=== PATIENT | female | born 1990 | race Caucasian/White ===

== ENCOUNTER 2019-06-28 08:00 | Emergency (ER) | payer BC ==
[2019-06-28 10:18] VITALS: BP 121/71
--- NOTE | 2019-06-28 11:03 | UC ---
Throat Pain/Nasal Caden HPI - HPI Summary HPI Summary: 5-6 DAYS OF SORE THROAT, PAIN WITH SWALLOWING AND DEEP COUGH. NO FEVER, NAUSEA/ VOMITING. SEEN HERE 2 DAYS AGO AND HAD A NEGATIVE STREP TEST. WAS ADVISED SHE HAD A VIRAL ILLNESS AND TO TREAT CONSERVATIVELY. IS HERE TODAY STATING SHE FEELS WORSE. THROAT PAIN IS KEEPING HER UP AT NIGHT. - History of Current Complaint Chief Complaint: UCGeneralIllness Stated Complaint: RECHECK OF SORE THROAT COUGH Time Seen by Provider: 06/28/19 09:01 Hx Obtained From: Patient Hx Last Menstrual Period: nuva ring Onset/Duration: Gradual Onset, Lasting Days, Still Present Severity: Moderate Pain Intensity: 2 Pain Scale Used: 0-10 Numeric Cough: Nonproductive Associated Signs & Symptoms: Positive: Hoarseness. Negative: Fever - Allergies/Home Medications Allergies/Adverse Reactions: Allergies Allergy/AdvReac Type Severity Reaction Status Date / Time No Known Allergies Allergy Verified 06/28/19 08:09 PMH/Surg Hx/FS Hx/Imm Hx Previously Healthy: Yes - Surgical History Surgical History: None - Family History Known Family History: Positive: Non-Contributory - Social History Alcohol Use: None Substance Use Type: None Smoking Status (MU): Never Smoked Tobacco Review of Systems All Other Systems Reviewed And Are Negative: Yes Constitutional: Positive: Negative ENT: Positive: Sore Throat, Nasal Discharge Respiratory: Positive: Cough Cardiovascular: Positive: Negative Gastrointestinal: Positive: Negative Physical Exam Triage Information Reviewed: Yes Appearance: Well-Appearing, No Pain Distress, Well-Nourished Vital Signs: Initial Vital Signs Temp 98.8 F 06/28/19 08:06 Pulse 110 06/28/19 08:06 Resp 20 06/28/19 08:06 BP 99/67 06/28/19 08:06 Pulse Ox 100 06/28/19 08:06 Vital Signs Reviewed: Yes Eyes: Positive: Conjunctiva Clear ENT: Positive: Hearing grossly normal, Pharynx normal, TMs normal, Hoarse voice. Negative: Tonsillar swelling, Tonsillar exudate Neck: Positive: Supple, Nontender, No Lymphadenopathy Respiratory Exam: Normal Cardiovascular Exam: Normal Abdomen Description: Positive: Soft Musculoskeletal: Positive: No Edema Neurological: Positive: Alert Psychological: Positive: Age Appropriate Behavior Skin: Negative: Rashes Throat Pain/Nasal Course/Dx - Course Course Of Treatment: PATIENT LOOKS GOOD ON PHYSICAL EXAM. NO TONSILLAR ERYTHEMA OR EXUDATES. LUNGS ARE CLEAR. EARS ARE NORMAL. NO INDICATION OF BACTERIAL INFECTION TODAY. NO INDICATION FOR REPEAT STREP TEST. DISCUSSED CONSERVATIVE MEASURES TO MANAGE PATIENT'S SYMPTOMS. WILL GIVE IBUPROFEN, MAGIC MOUTHWASH, COUGH MEDICINE AND PREDNISONE. NO INDICATION FOR ANTIBIOTICS AT PRESENT. PATIENT IS IN AGREEMENT WITH THIS PLAN. SHE WILL FOLLOW-UP IF NOT IMPROVING OVER THE NEXT 1-2 WEEKS. - Differential Dx/Diagnosis Provider Diagnosis: Acute viral pharyngitis Discharge ED - Sign-Out/Discharge Documenting (check all that apply): Patient Departure All imaging exams completed and their final reports reviewed: No Studies - Discharge Plan Condition: Stable Disposition: HOME Prescriptions: Benzonatate CAP* [Tessalon CAP*] 1 - 2 cap PO TID PRN #30 cap PRN Reason: Cough Ibuprofen TAB* [Motrin TAB* 600 MG] 1 tab PO Q6H PRN #30 tab PRN Reason: Pain Magic Mouth Was-CHASE/MAAL/LIDO* 5 - 10 ml SWISH SWAL QID PRN #150 ml PRN Reason: Sore Throat predniSONE TAB* [Deltasone TAB*] 50 mg PO DAILY #5 tab Patient Education Materials: Pharyngitis (ED) Referrals: [facility] [Outside] - If Needed Additional Instructions: YOUR SYMPTOMS ARE LIKELY VIRALLY MEDIATED AND SHOULD RESOLVE ON THEIR OWN WITH TIME. NO INDICATION FOR ANTIBIOTICS AT PRESENT. REST, HYDRATE, IBUPROFEN NEEDED. WILL TREAT WITH PREDNISONE TO HELP WITH AIRWAY INFLAMMATION AND COUGH MEDICINE. SEEK FOLLOW-UP IF YOU ARE NOT IMPROVING OVER THE NEXT 1-2 WEEKS. CALL THE NUMBER BELOW FOR ASSISTANCE IN ESTABLISHING WITH A PCP An additional resource available to assist in finding the appropriate physician for your health care needs is the [facility] ([facility]). You may contact them by calling [phone]. - Billing Disposition and Condition Condition: STABLE Disposition: Home
== END 2019-06-28 10:19 | disposition home or self-care (01) ==
LOC: UCEAST 08:00
DX: J02.8 Acute pharyngitis due to other specified organisms (principal); R05 Cough
CPT/HCPCS: 99212; G0463

== ENCOUNTER 2019-07-04 07:02 | Emergency (ER) | payer BC ==
--- NOTE | 2019-07-04 07:10 | UC ---
Throat Pain/Nasal Caden HPI - HPI Summary HPI Summary: 28 year old woman comes in with 10 days of upper respiratory tract infection symptoms. Patient's had rhinorrhea sore throat cough chest congestion. She's been treated with peds on the date and prednisone and ftrb-xyr-nmqowxg cough medications. The rhinorrhea has improved the sore throat is improved but now settled into her chest. She is making sputum. She is not seen the color of the sputum. She is not seen any sputum to give us color. No recent fevers. She does feel short of breath and somewhat lightheaded. Has not been able sleep well secondary to the symptoms. Describes chest congestion and denies any wheezing. No History of asthma. She does have chest pain diffusely with coughing. - History of Current Complaint Stated Complaint: COUGH HEAD/CHEST CONGESTION Time Seen by Provider: 07/04/19 07:07 Hx Last Menstrual Period: nuva ring - Allergies/Home Medications Allergies/Adverse Reactions: Allergies Allergy/AdvReac Type Severity Reaction Status Date / Time No Known Allergies Allergy Verified 07/04/19 07:18 Home Medications: Home Medications Etonogest/Eth.estradiol (Nf) [Nuvaring Vaginal Ring] 1 each VAGINAL .SEE COMMENTS 07/04/19 [History Confirmed 07/04/19] Mometasone NASAL (NF) [Nasonex (NF)] 50 mcg NA DAILY WITH MEAL 07/04/19 [ History Confirmed 07/04/19] Spironolactone 100 mg PO DAILY WITH MEAL 07/04/19 [History Confirmed 07/04/19] PMH/Surg Hx/FS Hx/Imm Hx Previously Healthy: Yes - Surgical History Surgical History: None - Family History Known Family History: Positive: Non-Contributory - Social History Alcohol Use: None Substance Use Type: None Smoking Status (MU): Never Smoked Tobacco Review of Systems All Other Systems Reviewed And Are Negative: Yes Constitutional: Positive: Other - see hpi Skin: Positive: Negative Eyes: Positive: Negative ENT: Positive: Sore Throat, Nasal Discharge, Sinus Congestion Respiratory: Positive: Shortness Of Breath, Cough, Other - see hpi Cardiovascular: Positive: Other - see hpi Gastrointestinal: Positive: Negative Motor: Positive: Negative Neurovascular: Positive: Negative Musculoskeletal: Positive: Negative Neurological: Positive: Negative Psychological: Positive: Negative Is Patient Immunocompromised?: No Physical Exam Triage Information Reviewed: Yes Appearance: No Pain Distress, Well-Nourished, Ill-Appearing - mild Vital Signs Reviewed: Yes Eye Exam: Normal Eyes: Positive: Conjunctiva Clear ENT: Positive: Pharyngeal erythema, Nasal congestion, TMs normal Neck: Positive: Supple, Nontender Respiratory: Positive: No respiratory distress, Rhonchi Cardiovascular: Positive: Tachycardia Musculoskeletal: Positive: Strength Intact, ROM Intact Neurological: Positive: Alert Psychological: Positive: Age Appropriate Behavior Skin Exam: Normal Diagnostics - EKG Cardiac Rate: Tachycardia - AT 0802 Cardiac Rhythm: Sinus: Normal - 115BPM Ectopy: None ST Segment: Normal Throat Pain/Nasal Course/Dx - Course Course Of Treatment: Singer Back Tender: Ana Granado S, ([id number]) Intelligence Support Officer: FRANCINE, (NUANCE) Report Date: 07/04/2019 07:28:00 Report Status: Final Start of Report Content Patient Name: MIRANDA HUNG Medical Record#: [id number] Ordering Physician: Arnulfo Betancourt MD Acct.#: [id number] : 09/1991 Age: 28 Sex: F Location: [facility] Exam Date: 07/04/19727 ADM Status: REG ER Order Information: CHEST PA LAT 2 VWS Accession Number: [id number] CPT: 63681 Indication: Cough. 2 views of the chest are reviewed. No mediastinal shift is noted. Heart is of normal size and configuration. Airspace disease is noted in the right lung base consistent with right middle lobe infiltrate. Persistent with pneumonia. No pleural fluid is identified. IMPRESSION: Findings consistent with right middle lobe pneumonia. <Electronically signed by Ana Granado MD in OV> 07/04/19801 Dictated By: Ana Granado MD Dictated Date/Time: 801 Transcribed Date/Time: 07/04/19801 Copy to: CC:No Primary Care Phys,NOPCP ; Arnulfo Betancourt MD Imaging - [facility] Imaging - [facility] Imaging - [facility] [id number] [place] [id number] ph ) ph ([phone]) ph ([phone]) End of Report Content EKG is sinus tachycardia. I discussed the chest x-ray with the patient. Go to treat with doxycycline 100 mg by mouth twice a day 10 days. Also albuterol as needed if helpful. Continue uuxy-jsl-aciofuv expectorants. Go to the emergency department if worse or any questions or concerns. - Differential Dx/Diagnosis Provider Diagnosis: Pneumonia Discharge ED - Sign-Out/Discharge Documenting (check all that apply): Patient Departure All imaging exams completed and their final reports reviewed: Yes - Discharge Plan Condition: Stable Disposition: HOME Prescriptions: Albuterol HFA INHALER* [Ventolin HFA Inhaler*] 2 puff INH Q4H PRN #1 mdi PRN Reason: Wheezing DOXYcycline CAP(*) [DOXYcycline 100MG CAP(*)] 100 mg PO BID #20 cap Patient Education Materials: Community Acquired Pneumonia (ED) Referrals: [facility] [Outside] [facility] [Outside] Additional Instructions: FOLLOW UP WITH YOUR DOCTOR. GO TO THE EMERGENCY DEPARTMENT IF YOUR CONDITION DOES NOT IMPROVE OR WORSENS; SHORTNESS OF BREATH, FEVERS OR ANY QUESTIONS OR CONCERNS. - Billing Disposition and Condition Condition: STABLE Disposition: Home
[2019-07-04 07:14] VITALS: BP 107/56
== END 2019-07-04 08:37 | disposition home or self-care (01) ==
LOC: UCEAST 07:02
DX: J18.9 Pneumonia, unspecified organism (principal)
CPT/HCPCS: 71046; 93005; 99212; G0463

== ENCOUNTER 2019-10-17 14:26 | Emergency (ER) | payer BC ==
--- OUTSIDE RECORDS SUMMARY | 2019-10-17 14:33 | XMS REPORT | Continuity of Care Document ---
:1990 External Reference #:[id number] Author Name DAYAN Carpenter (transmitted by agent of provider Lul Barr) Address [address] [place] [address] Care Team Providers Name Role Phone Leopoldo Heard MD - Internal Care Team Information Sales Enablement Specialist Medicine Problems Active Problems Provider Date Allergic rhinitis due to pollen Lul Barr MD Onset: 07/27/2018 Allergic rhinitis Lul Barr MD Onset: 07/27/2018 Social History Type Date Description Comments Sex Unknown Tobacco Use Start: Unknown Patient has never smoked Tobacco Use Start: Unknown No Second Hand Smoke Exposure Smoking Status Reviewed: 09/23/19 No Second Hand Smoke Exposure Allergies, Adverse Reactions, Alerts Description No Known Drug Allergies Medications Active Medications SIG Qnty Indications Ordering Provider Date Mometasone Furoate 2 sprays each 51gm J30.1 Miki Hou, 07/27/2018 nostril once daily RPA-C 50mcg/Act Suspension Desloratadine take one tablet by 90tabs J30.1 Lul Washburn 07/27/2018 5mg mouth every day as MD Momo Tablets needed Nuvaring intravaginal Unknown 0.12-0.015mg/24HR Ring Spironolactone Unknown 100mg Tablets Immunizations Description No Information Available Vital Signs Date Vital Result Comment 09/23/2019 3:55pm BP Systolic 124 mmHg BP Diastolic 69 mmHg Height 66 inches 5'6" Weight 145.00 lb BMI (Body Mass Index) 23.4 kg/m2 Heart Rate 99 /min Respiratory Rate 16 /min O2 % BldC Oximetry 97 % 07/27/2018 2:41pm BP Systolic 123 mmHg BP Diastolic 78 mmHg Height 66 inches 5'6" Weight 145.38 lb BMI (Body Mass Index) 23.5 kg/m2 Heart Rate 112 /min Respiratory Rate 14 /min Body Temperature 96.7 F O2 % BldC Oximetry 98 % Results Description No Information Available Procedures Description No Information Available Medical Devices Description No Information Available Encounters Type Date Location Provider Dx Diagnosis Office Visit 09/23/2019 4:00p [place] DAYAN Carpenter J30.1 Allergic rhinitis due to pollen J30.89 Other allergic rhinitis Assessments Date Code Description Provider 09/23/2019 J30.1 Allergic rhinitis due to pollen Lul Barr MD 09/23/2019 J30.1 Allergic rhinitis due to pollen DAYAN Carpenter 09/23/2019 J30.89 Other allergic rhinitis Lul Barr MD 09/23/2019 J30.89 Other allergic rhinitis DAYAN Carpenter Plan of Treatment Future Appointment(s):09/23/2020 2:30 pm - DAYAN Carpenter at [id number]/23/2019 - DAYAN CarpenterJ30.1 Allergic rhinitis due to pollenComments:Patient to continue Nasonex for prophylaxis of her nose and Clarinex for breakthrough nasal symptoms. Environmental controls discussed including dust mite proof pillow case and mattress covers. Patient is not interested in allergen immunotherapy injections at this time. Patient instructed on properadministrative technique for her steroid nasal spray. Saline nasal rinse and HEPA air filter may help decrease allergens.Recommend vitamin D, 2000 units , dailyFollow up:one yearJ30.89 Other allergic rhinitis Functional Status Description No Information Available Mental Status Description No Information Available Referrals Description No Information Available
[2019-10-17 14:36] VITALS: BP 129/75
--- NOTE | 2019-10-17 15:22 | UC ---
Throat Pain/Nasal Caden HPI - HPI Summary HPI Summary: 38-year-old comes with chief complaint of cough chest congestion a stretcher tract infection symptoms. To go for 5 days. Patient noticed today that she has cough and chest congestion primarily located in the right side of her chest where she had a pneumonia on July 04, 2019. Patient's worried she is developing pneumonia again. She does have some sore throat postnasal drip and rhinorrhea. Denies any wheezing. - History of Current Complaint Chief Complaint: UCRespiratory Stated Complaint: CHEST CONGESTION COUGH Time Seen by Provider: 10/17/19 14:34 Hx Last Menstrual Period: 10/10/19 Pain Intensity: 3 - Allergies/Home Medications Allergies/Adverse Reactions: Allergies Allergy/AdvReac Type Severity Reaction Status Date / Time No Known Allergies Allergy Verified 10/17/19 14:36 PMH/Surg Hx/FS Hx/Imm Hx Previously Healthy: Yes Respiratory History: Pneumonia - Surgical History Surgical History: None - Family History Known Family History: Positive: Non-Contributory - Social History Alcohol Use: None Substance Use Type: None Smoking Status (MU): Never Smoked Tobacco Review of Systems All Other Systems Reviewed And Are Negative: Yes Constitutional: Positive: Other - SEE HPI Skin: Positive: Negative Eyes: Positive: Negative ENT: Positive: Sore Throat, Nasal Discharge, Sinus Congestion Respiratory: Positive: Cough, Other - SEE HPI Cardiovascular: Positive: Negative Gastrointestinal: Positive: Negative Motor: Positive: Negative Neurovascular: Positive: Negative Musculoskeletal: Positive: Negative Neurological: Positive: Negative Psychological: Positive: Negative Is Patient Immunocompromised?: No Physical Exam Triage Information Reviewed: Yes Appearance: No Pain Distress, Well-Nourished, Ill-Appearing - MILD Vital Signs: Initial Vital Signs Temp 98.4 F 10/17/19 14:32 Pulse 114 10/17/19 14:32 Resp 16 10/17/19 14:32 BP 129/75 10/17/19 14:32 Pulse Ox 96 10/17/19 14:32 Vital Signs Reviewed: Yes Eye Exam: Normal Eyes: Positive: Conjunctiva Clear ENT: Positive: Pharyngeal erythema, Nasal congestion, Nasal drainage, TMs normal Neck: Positive: Supple Respiratory: Positive: Lungs clear, Normal breath sounds, No respiratory distress Cardiovascular: Positive: RRR Musculoskeletal: Positive: Strength Intact, ROM Intact, No Edema - NO CALF TENDERNESS Neurological: Positive: Alert, Muscle Tone Normal Psychological: Positive: Age Appropriate Behavior Skin Exam: Normal Throat Pain/Nasal Course/Dx - Course Course Of Treatment: Polishing Machine Operator Helper: Uli Ryan Daniel, ([id number]) Pharmacovigilance Specialist: FRANCINE ( NUANCE) Report Date: 10/17/2019 15:20:00 Report Status: Final ====== Start of Report Content Patient Name: MIRANDA HUNG Ordering Physician: Arnulfo Betancourt MD Acct.#: [id number] : 1990 Age: 28 Sex: F Location: [facility] Exam Date: 144 ADM Status: REG ER Order Information: CHEST PA LAT 2 S Accession Number: [id number] CPT: 15702 HISTORY: COUGH,CONGESTION,HX PNEUMONIA COMPARISONS: July 04, 2019 VIEWS: 4: Frontal dual-energy and lateral views of the chest. FINDINGS: CARDIOMEDIASTINAL SILHOUETTE: The cardiomediastinal silhouette is normal. MARYAM: The maryam are normal. PLEURA: The costophrenic angles are sharp. No pleural abnormalities are noted. LUNG PARENCHYMA: The lungs are clear. ABDOMEN: The upper abdomen is clear. There is no subphrenic gas. BONES AND SOFT TISSUES: No bone or soft tissue abnormalities are noted. OTHER: None. IMPRESSION: NO ACTIVE CARDIOPULMONARY DISEASE. <Electronically signed by Uli Ryan MD in OV> 10/17/191515 Dictated By: Uli Ryan MD Dictated Date /Time: 10/17/191515 Transcribed Date/Time: 10/17/191515 Copy to: CC:No Primary Care Phys,NOPCP ; Arnulfo Betancourt MD Imaging - [facility] Imaging - [facility] Imaging - [facility] [address] [facility] [address] [place], [place] [id number] [place] [id number] [place] [id number] ph ([phone]) ph ([phone]) ph ([phone]) End of Report Content I discussed the chest x-ray results with the patient. DISCUSSED VIRAL VERSES BACTERIAL INFECTIONS AND THE ROLE OF ANTIBIOTICS. THE PATIENT PREFERS TO BE ON ANTIBIOTICS AT THIS TIME. - Differential Dx/Diagnosis Provider Diagnosis: Bronchitis Discharge ED - Sign-Out/Discharge Documenting (check all that apply): Patient Departure All imaging exams completed and their final reports reviewed: Yes - Discharge Plan Condition: Stable Disposition: HOME Prescriptions: DOXYcycline CAP(*) [DOXYcycline 100MG CAP(*)] 100 mg PO BID #20 cap Patient Education Materials: Acute Bronchitis (ED) Referrals: [facility] [Outside] Additional Instructions: FOLLOW UP WITH YOUR DOCTOR IF NOT COMPLETELY IMPROVED. GET REEVALUATED SOONER IF NOT IMPROVED OR WORSE OR ANY QUESTIONS OR CONCERNS. - Billing Disposition and Condition Condition: STABLE Disposition: Home
== END 2019-10-17 15:30 | disposition home or self-care (01) ==
LOC: UCEAST 14:26
DX: J40 Bronchitis, not specified as acute or chronic (principal); J02.9 Acute pharyngitis, unspecified
CPT/HCPCS: 71046; 87651; 99212; G0463